=== PATIENT | female | born 1995 | race Caucasian/White ===

== ENCOUNTER 2016-08-13 07:25 | Inpatient (IN) | payer BC ==
--- NOTE | ~2016-08-13 | HP ---
Unit #: [id number] #: [id number] Patient: CESAR GUEVARA [id number] [address] [address] [id number] I MR#: [id number] NAME: CESAR GUEVARA ROOM: 47 Age: 21 Sex: F Admission Date: 08/13/2016 : 1995 Attending Physician: Miranda Mijares M.D. Primary Care Physician: Leandro Huang M.D. HISTORY AND PHYSICAL CHIEF COMPLAINT Abdominal pain. HISTORY OF PRESENT ILLNESS The patient is a 21-year-old female with past medical history of irritable bowel syndrome, who presented to [facility] for evaluation of the above. The patient states that she was in her usual state of health until around midnight when she developed abdominal pain. She states that the pain was in the upper abdomen. She described it as "sharp." She states that it is similar to when she had irritable bowel syndrome pain in the past. She took over the counter laxatives without relief. She denies any vomiting. She has not had a bowel movement since yesterday. She presented to the emergency department for further evaluation. In the emergency department, a gallbladder ultrasound was done and showed cholelithiasis with no evidence of gallbladder wall thickening. There was common bile duct dilation to 8 mm concerning for possible choledocholithiasis. She was transferred to [facility] for admission. PAST MEDICAL HISTORY 1. Irritable bowel syndrome: The patient had a colonoscopy with Dr. Denis at the age of 18. She is not sure where it was done. 2. Hyperlipidemia. PAST SURGICAL HISTORY Colonoscopy (no records). SOCIAL HISTORY The patient lives with her . There is no tobacco or alcohol use. She is not currently working. FAMILY HISTORY Notable for her dad having pancreatitis. ALLERGIES No known allergies. HOME MEDICATIONS None. REVIEW OF SYSTEMS Unit #: [id number] #: [id number] Patient: CESAR GUEVARA A complete review of systems is negative except as indicated in the HPI. DIAGNOSTIC STUDIES LABORATORY: Comprehensive metabolic panel is normal. Lipase is normal. Beta hCG is negative. Urinalysis is normal. Complete blood count normal. IMAGING: Right upper quadrant ultrasound shows cholelithiasis with no evidence of gallbladder wall thickening. There is dilation of the common bile duct to 8 mm concerning for possible choledocholithiasis. REVIEW OF SYSTEMS A complete review of systems is negative except as indicated in the HPI. The patient states that she has been going to [employer] and has lost about 20 pounds since February. PHYSICAL EXAMINATION VITAL SIGNS: Temperature 98, pulse 78, respirations 16, blood pressure 149/102 (most recently 130/70), oxygen saturation 100% on room air. GENERAL: The patient is a very pleasant female who is awake and alert in no acute distress. HEENT: The head is atraumatic. Mucous membranes are moist. NECK: Supple. Trachea is midline. CARDIOVASCULAR: Regular rate and rhythm. LUNGS: Clear to auscultation bilaterally with no increased work of breathing. ABDOMEN: Soft. She is mildly tender to palpation in right upper quadrant. Bowel sounds are present in all four quadrants. EXTREMITIES: Nontender with no pedal edema. NEUROLOGIC: The patient is awake and alert. She follows commands. PSYCHIATRIC: Mood and affect are normal. The patient is cooperative. SKIN: Skin of examined areas is warm and dry. ASSESSMENT The patient is a 21-year-old female with: 1. Abdominal pain: Right upper quadrant ultrasound showed findings concerning for possible choledocholithiasis. 2. Cholelithiasis with no gallbladder wall thickening. 3. History of irritable bowel syndrome. 4. Obesity with a body mass index of 36. 5. Hyperlipidemia. PLAN 1. Admit for observation to med/surg. 2. P.r.n. morphine. 3. P.r.n. Zofran. 4. P.r.n. Tylenol. 5. Normal saline at 125 mL/hr. 6. NPO. 7. Consult Dr. Yarbrough regarding abdominal pain and possible need for ERCP. 8. SCDs for DVT prophylaxis. 9. Repeat labs in the morning. 10. Additional workup and consultants based on above. Dictated by Unit #: [id number] #: [id number] Patient: TENA GUEVARAJEFF Mijares M.D. Odilon TD: 08/13/2016 17:29 JOB #: [id number] HISTORY AND PHYSICAL Page 1 of 1 X Miranda Mijares MD HISTORY AND PHYSICAL
--- NOTE | ~2016-08-13 | US67 ---
[facility] A Service of [facility] RADIOLOGY TEXT RESULTS PATIENT: CESAR GUEVARA LOCATION: SED : 95 UNIT #: [id number] AGE: [address]: Pari Soriano MD SEX: F ORDER DR: [id number] [address] [address] [id number] E MR#: [id number] Acc #: [id number] NAME: CESAR GUEVARA : 1995 SEX: F STUDY DATE/TIME: 08/13/2016 8:05 UNIT: SED ROOM: STUDY DESCRIPTION: Gallbladder Attending Physician: Pari Soriano M.D. Ordering Physician: Pari Soriano M.D. Primary Care Physician: Leandro Huang M.D. MEDICAL IMAGING REPORT This report is preliminary unless electronic signature is present. EXAM Gallbladder ultrasound 08/13/2016 HISTORY Right upper quadrant abdominal pain since 03:00 a.m. this morning. FINDINGS The liver is homogeneous in echotexture and demonstrates no cystic or solid mass lesions. The intrahepatic bile ducts are not dilated. The gallbladder contains multiple shadowing gallstones but there is no evidence of gallbladder wall thickening or pericholecystic fluid. The common duct is dilated to 8 mm. No obstructing mass or calculus is seen but the distal aspect of the common duct and the pancreas are obscured by bowel gas. If there is clinical concern for choledocholithiasis, consider correlation with MRCP. The right kidney is normal. IMPRESSION 1. Cholelithiasis. No evidence of gallbladder wall thickening or pericholecystic fluid. 2. There is no intrahepatic biliary ductal dilatation but the common duct is dilated to 8 mm. No obstructing mass or calculus is seen but note is made that the distal aspect of the common duct and the pancreas are obscured by bowel gas. If there is clinical concern for choledocholithiasis, consider correlation with MRCP. STAT * RESULT Dictated by... Beni Gracia M.D. [facility] A Service of [facility] RADIOLOGY TEXT RESULTS PATIENT: CESAR GUEVARA LOCATION: [facility] #: [id number] : [birth year] UNIT #: [id number] AGE: [address]: Pari Soriano MD SEX: F ORDER DR: THIS IS AN ELECTRONICALLY VERIFIED REPORT Beni Gracia M.D. at 08/13/2016 9:29 AM JESSE/jair TD: 08/13/2016 08:43 JOB #: [id number] MEDICAL IMAGING REPORT Page 1 of 1
--- NOTE | ~2016-08-13 | OR ---
Unit #: [id number] #: [id number] Patient: CESAR GUEVARA [id number] [address] [address] [id number] I MR#: [id number] NAME: CESAR GUEVARA ROOM: 479 Date of Procedure: 08/15/2016 Admission Date: 08/13/2016 Surgeon: Jack Cardenas M.D. : 1995 Attending Physician: Bekah Nunez M.D. Primary Care Physician: Leandro Huang M.D. OPERATIVE REPORT PREOPERATIVE DIAGNOSIS Cholecystitis. POSTOPERATIVE DIAGNOSIS Cholecystitis. PROCEDURE PERFORMED Laparoscopic cholecystectomy. BLACK OXIDE COATING EQUIPMENT TENDER None. ANESTHESIA General endotracheal anesthesia. ESTIMATED BLOOD LOSS Minimal. IV FLUIDS 800 crystalloid. COMPLICATIONS None. INDICATIONS FOR PROCEDURE The patient is a 21-year-old with cholecystitis. DESCRIPTION OF PROCEDURE The patient was taken to the operating theater and placed in a supine position. General anesthesia was induced. Her abdomen was prepped and draped. An Optiview trocar was placed in the right upper quadrant without difficulty. The abdomen was insufflated to 15 mmHg with CO2. Under direct vision, I placed a subxiphoid 10 mm, right lateral 5 mm, umbilical 5 mm. General inspection of the abdomen revealed acute cholecystitis. The gallbladder was retracted up over the liver. We dissected the neck of the gallbladder and identified the cystic duct. Its junction with the gallbladder was confirmed. It was thus skeletonized, doubly hemoclipped, and divided. The gallbladder was removed from the gallbladder bed with Bovie electrocautery and delivered via the subxiphoid port. Hemostasis was adequate. We removed the ports under direct vision with no evidence of abdominal hemorrhage. The wounds were closed with 4-0 Vicryl. The patient tolerated the procedure well and sent to the recovery room in good Unit #: [id number] #: [id number] Patient: CESAR GUEVARA condition. Dictated by... Jagjit Marx/abril TD: 08/15/2016 17:28 JOB #: [id number] OPERATIVE REPORT Page 1 of 1 X Jack Cardenas MD PROCEDURE OPERATIVE NOTE
--- NOTE | ~2016-08-13 | MR145 ---
[facility] A Service of [facility] RADIOLOGY TEXT RESULTS PATIENT: CESAR GUEVARA LOCATION: [place] [address]- : [birth year] UNIT #: [id number] AGE: [address]: Beakh Nunez MD SEX: F ORDER DR: [id number] [facility] [address] [facility]. [place], [place] [address] [id number] I MR#: [id number] Acc #: [id number] NAME: CESAR GUVEARA : 1995 SEX: F STUDY DATE/TIME: 08/13/2016 19:33 UNIT: [facility] ROOM: [facility] STUDY DESCRIPTION: MR MRCP WWo Contrast Attending Physician: Bekah Nunez M.D. Ordering Physician: Miranda Mijares M.D. Primary Care Physician: Leandro Huang M.D. MRI CENTER REPORT This report is preliminary unless electronic signature is present. EXAM MRI/MRCP INDICATIONS Right upper quadrant abdominal pain for 10 months. Acute right upper quadrant pain for 1 day. TECHNIQUE Multiplanar MRI of the abdomen with and without IV contrast (20 mL MultiHance IV contrast). Thin and thick slab MRCP sequences were obtained. COMPARISON Right upper quadrant ultrasound 08/13/2016. FINDINGS The liver is morphologically normal. There is no hepatic mass. The intrahepatic bile ducts are normal in caliber. No significant biliary variants are identified of the intrahepatic ducts. There are multiple gallstones layering dependently in gallbladder. The gallbladder is not distended. There is no pericholecystic inflammation. The common duct measures 0.8 cm at the port hepatis. There is gradual tapering of the duct to the level of the ampulla/pancreatic head. No choledocholithiasis. No abnormal enhancement or mass associated with the duct. The pancreas is normal. No pancreatic ductal enlargement. The spleen, adrenal glands, and kidneys are normal. No hydronephrosis. The bowel is not dilated. No abnormal bone marrow signal. [facility] A Service of [facility] RADIOLOGY TEXT RESULTS PATIENT: CESAR GUEVARA [facility] [id number] : [birth year] UNIT #: [id number] AGE: [address]: Bekah Nunez MD SEX: F ORDER DR: IMPRESSION 1. Cholelithiasis. 2. Mildly enlargement of the common bile duct measuring 0.8 cm at the arie hepatis, however, there is no choledocholithiasis or abnormal enhancement/mass associated with the common bile duct. 3. Normal appearance of the pancreas and pancreatic duct. Dictated by... Marcio Andrea M.D. THIS IS AN ELECTRONICALLY VERIFIED REPORT Marcio Andrea M.D. at 08/14/2016 10:55 AM FE/neetu TD: 08/14/2016 10:28 JOB #: [id number] MRI CENTER REPORT Page 1 of 1 COPY
--- NOTE | ~2016-08-13 | DS ---
Unit #: [id number] #: [id number] Patient: CESAR GUEVARA [id number] [address] [address] [id number] I MR#: [id number] NAME: CESAR GUEVARA ROOM: 47 Age: 21 Sex: F Admission Date: 08/13/2016 : 1995 Discharge Date: 08/16/2016 Attending Physician: Bekah Nunez M.D. Primary Care Physician: Leandro Huang M.D. DISCHARGE SUMMARY DISCHARGE DIAGNOSES 1. Acute biliary colic with cholelithiasis. 2. Irritable bowel syndrome. 3. Hyperlipidemia. CONSULTATIONS 1. Dr. Yarbrough. 2. Dr. Wilhelm. PROCEDURE The patient had laparoscopic cholecystectomy. DIAGNOSTIC STUDIES LAB DATA: Sodium 136, potassium 4.5, creatinine 0.7. Liver enzymes normal. WBC 10.3, hemoglobin 12.9, platelets 262. IMAGING: MRCP shows cholelithiasis, mildly enlargement of the common bile duct measuring 0.8 cm at the arie hepatis. No choledocholithiasis. No abnormal mass. Ultrasound of the gallbladder shows cholelithiasis. No evidence of gallbladder wall thickening. No intrahepatic biliary duct dilation but common bile duct is 80 mm. HOSPITALIZATION COURSE A 21 year old admitted because of abdominal pain. Acute biliary colic with abnormal MRCP. The patient was seen by GI and [facility]. According to them, the patient needs MRCP which she had and which was abnormal. The patient underwent a laparoscopic cholecystectomy. Patient being discharged home by [facility]. Follow with the family physician in one week's time. Follow with Dr. Cardenas in one week's time. The patient was started on diet as tolerated by [facility]. ALLERGIES None. DISCHARGE MEDICATION 1. Laxative of choice. 2. control pills p.o. daily as per family physician. 3. Lortab 7.5 mg one to two tablets p.o. q.6 p.r.n. pain. Discharge home. Follow with family physician in one week's time. Follow with [facility] in one week's time. Unit #: [id number] #: [id number] Patient: CESAR GUEVARA Dictated by... Jagjit Roth TD: 08/16/2016 12:55 JOB #: [id number] DISCHARGE SUMMARY Page 1 of 1 X Bekah Nunez MD X DISCHARGE SUMMARY
--- NOTE | ~2016-08-13 | CO ---
Unit #: [id number] #: [id number] Patient: CESAR GUEVARA [id number] [address] [place] [address] [place], [place] [address] [id number] I MR#: [id number] NAME: CESAR GUEVARA ROOM: 47 Age: 21 Sex: F Admission Date: 08/13/2016 : 1995 Attending Physician: Bekah Nunez M.D. Primary Care Physician: Leandro Huang M.D. Consultation Date: 08/14/2016 CONSULTATION REPORT BRIEF SUMMARY The patient is a 21-year-old white female, who has normal good health up until the day and a half ago when she developed severe upper abdominal pains with associated nausea without vomiting. She has had no fever, no chills and at present, her pains resolved. She was seen in the emergency room at [facility] and worked up including a CAT scan with evidence of gallstones and some dilatation of her ductal system. She has had no past history of jaundice, hepatitis, pancreatitis, or peptic ulcer disease, but has had some intermittent attacks of similar pains that resolved without significant intervention. She has been diagnosed with irritable bowel syndrome, which may have also been related to her gallbladder couple of years ago and had a colonoscopy by Dr. Denis at that time, which was negative. The patient is nonsmoker. She denies any fatty food intolerance. PAST MEDICAL HISTORY Serious illnesses, none except for some hyperlipidemia. PAST SURGICAL HISTORY The patient had wisdom teeth removed and a colonoscopy as noted above. MEDICATIONS None chronically. ALLERGIES None known. TRANSFUSION None in the past. FAMILY HISTORY Her father did have gallstones and had a cholecystectomy, also had a history of pancreatitis from drinking alcohol. SOCIAL HISTORY The patient is . Lives at home with family. Has normal good appetite. No recent weight change. She is nonsmoker and nondrinker. IMMUNIZATIONS Up to date. REVIEW OF SYSTEMS Unremarkable except for that noted in the present illness. Unit #: [id number] #: [id number] Patient: CESAR GUEVARA PHYSICAL EXAMINATION VITAL SIGNS: Temperature 98.6, pulse 78, respirations 16, blood pressure 130/90. GENERAL DESCRIPTION: The patient is well-developed, obese 21-year-old white female, in no acute distress. HEENT: Not remarkable. NECK: Supple. CHEST: There is equal bilateral expansion with bilateral equal breath sounds. LUNGS: Clear bilaterally. HEART: Regular rhythm without murmurs or gallops. There is no evidence of cardiomegaly clinically. ABDOMEN: Soft, nontender, benign without palpable mass or organomegaly. There is no gross abdominal distention. No guarding or rebound. Active bowel sounds present. No evidence of ascites or hernias. EXTREMITIES: Full range of motion without limitation. There is no evidence of peripheral edema. BACK: There is no CVA tenderness. NEUROLOGIC: Grossly intact. IMPRESSION The patient has biliary colic with documented gallstones. No evidence of any common duct stones with normal liver function test. PLAN Plan will be to go ahead with laparoscopic cholecystectomy. I have discussed the surgery including the risks, including that of common duct injury, biliary leak, and bleeding, and intra-abdominal organ injury, and the patient consents. Dictated by... Odell Wilhelm Jr., M.Mili. LILIYA/abril TD: 08/14/2016 19:56 JOB #: [id number] CONSULTATION REPORT Page 1 of 1 X Odell Wilhelm MD X CONSULTATION REPORT
--- NOTE | ~2016-08-13 | CO ---
Unit #: [id number] #: [id number] Patient: CESAR CARVER [id number] [address] [place], [place] [address] [id number] I MR#: [id number] NAME: CESAR CARVER ROOM: 47 Age: 21 Sex: F Admission Date: 08/13/2016 : 1995 Attending Physician: Bekah Nunez M.D. Primary Care Physician: Leandro Huang M.D. Consultation Date: 08/13/2016 CONSULTATION REPORT REASON FOR CONSULTATION Abdominal pain, bladder stones. HISTORY OF PRESENTING ILLNESS Ms. Carver is a 21-year-old female. She was doing fine until last night when she started with some pain over to morning. It became really severe. It was mostly on the right side going to the chest, hands and back. She presented to the emergency room with the same pain and has been treated with morphine and feels better. Currently, she has no pain. She has no ever, no chills. She did have some nausea but no vomiting. She has not taken a bowel movement. PAST HISTORY Significant for IBS - colonoscopy three years ago with Dr. Denis was negative. SOCIAL HISTORY Nonsmoker, nonalcoholic. FAMILY HISTORY Noncontributory. REVIEW OF SYSTEMS Complete ten point review of systems was done which was unremarkable other than as mentioned above. PHYSICAL EXAMINATION VITAL SIGN: Stable, afebrile. No acute distress. HEENT: Pupils equal and reactive. Sclerae anicteric. Oral mucosa moist. NECK: No JVD, no lymphadenopathy. CHEST: Clear to auscultation bilaterally. CARDIOVASCULAR SYSTEM: Regular rate and rhythm. No murmurs. ABDOMEN: Soft, nontender, nondistended. EXTREMITIES: Without clubbing, cyanosis or edema. NEUROLOGICAL: Intact. SKIN: Warm and dry. DIAGNOSTIC STUDIES LABORATORY: CBC and CMP are completely unremarkable. LFTs are normal. Amylase and lipase are normal. IMAGING: Ultrasound of the abdomen shows dilated common bile duct at 8 mm. Gallstones were seen. No stones were seen in the duct itself. Unit #: [id number] #: [id number] Patient: CESAR CARVER ASSESSMENT AND PLAN Patient with acute biliary colic, possible common bile duct stone may have passed. LFTs are normal. At this time, she is feeling somewhat better also. I will get an MRCP for further evaluation. If there is any clear evidence of stones or persistent symptoms or duct abnormality, ERCP will be considered for clearing the duct. She may also need a cholecystectomy which will be considered after reviewing the MRCP. Thank you Dr. Mijares for this interesting consult. We will follow along. Dictated by... Emilio Yarbrough M.D. SOFIE/serafin TD: 08/15/2016 07:16 JOB #: [id number] CONSULTATION REPORT Page 1 of 1 X Emilio Yarbrough MD X CONSULTATION REPORT
--- NOTE | ~2016-08-13 | DS ---
Unit #: [id number] #: [id number] Patient: CESAR CARVER [id number] [address] [address] [id number] I MR#: [id number] NAME: CESAR CARVER ROOM: [facility] Age: 21 Sex: F Admission Date: 08/13/2016 : 1995 Discharge Date: 08/16/2016 Attending Physician: Bekah Nunez M.D. Primary Care Physician: Leandro Huang M.D. DISCHARGE SUMMARY HISTORY OF PRESENT ILLNESS Ms. Carver is a 21-year-old female who was admitted to the Medical Service because of severe abdominal pain. Radiologic evaluation revealed cholelithiasis with a dilated common bile duct. She was seen by Gastroenterology who ordered a MRCP because her liver chemistries were normal. MRCP showed no evidence of any choledocholithiasis. She was taken to the operating room the following day where she underwent an uncomplicated laparoscopic cholecystectomy. Postoperatively, her labs were all normal. She is afebrile with stable vital signs. She is tolerating a diet and her wounds are healing without complication. She will be discharged home today in stable condition with instruction to undergo diet and activity as tolerated. She may shower but not submerge her wounds under water until seen in the office. She is to call [phone] for a followup appointment with Dr. Cardenas. She may use a laxative as needed and resume any home medications that she is on. Medication reconciliation sheet was completed. A prescription for hydrocodone was left for pain control. The patient understood these instructions and will be discharged home in stable condition. Dictated by... Chris Mccurdy M.D. GALINA/virgen TD: 08/17/2016 09:28 JOB #: [id number] DISCHARGE SUMMARY Page 1 of 1 X Chris Mccurdy MD X DISCHARGE SUMMARY
[~2016-08-13 07:25] MED LIST: FIORICET 50-321 EACH PO
[2016-08-13] MEDS ORDERED: NO MEDICATIONS (07:32)
[2016-08-13 08:10] LABS: URINE SOURCE CLEAN CATCH
[2016-08-13 08:14] LABS: URINE APPEARANCE CLEAR; URINE BILIRUBIN NEG (NEG); URINE BLOOD NEG (NEG); URINE COLOR YELLOW; URINE GLUCOSE NEG (NORM); URINE KETONE NEG (NEG); URINE LEUKOCYTE ESTERASE NEG (NEG); URINE NITRATE NEG (NEG); URINE PROTEIN NEG (NEG); URINE UROBILINOGEN 0.2 MG/DL (NORM)
[2016-08-13 08:18] LABS: BASOPHIL% 0.4 % (0-2.5); EOSINOPHIL# 0.1 X10e3 (0-0.7); EOSINOPHIL% 1.2 % (0.0-7.0); HEMOGLOBIN 13.5 gm/dL (12.0-16.0); LYMPHOCYTE# 2.6 X10e3 (1.0-3.5); LYMPHOCYTE% 31.6 % (17.0-45.0); MEAN CORPUSCULAR HEMOGLOBIN 30.5 PG (28-34); MEAN CORPUSCULAR HGB CONC 33.9 g/dL (30-36); MEAN PLATELET VOLUME 10.5 FL (6.5-11.5); MONOCYTE# 0.6 X10e3 (0-1.0); MONOCYTE% 7.8 % (3.0-12.0); NEUTROPHIL# 4.9 X10e3 (1.5-7.1); PLATELET COUNT 237 X10e3 (140-420); RED BLOOD COUNT 4.44 X10e (3.90-5.30); WHITE BLOOD COUNT 8.3 X10e3 (4.0-10.5)
[2016-08-13 08:20] LABS: DIFF IND NO; MICRO INDICATED? NO
[2016-08-13 08:35] LABS: ALBUMIN SERUM 4.1 g/dL (3.5-5.0); ALKALINE PHOSPHATASE 91 U/L (32-92); ALT (SGPT) 13 U/L (10-40); AST (SGOT) 16 U/L (10-42); BILIRUBIN,TOTAL 0.4 mg/dL (0.2-2.0); BLOOD UREA NITROGEN 12 mg/dL (9-23); CARBON DIOXIDE 22 mmol/L (22-31); CHLORIDE 107 mmol/L (100-111); CREATININE SERUM 0.8 mg/dL (0.6-1.4); GLOM FILT RATE Estimated 105.5 mL/min (>60); GLUCOSE FASTING 100 mg/dL (70-110); LIPASE 41 U/L (22-51); POTASSIUM 3.8 mmol/L (3.5-5.1); PROTEIN TOTAL SERUM 7.3 g/dL (6.0-8.3); SODIUM 135 mmol/L (135-145)
[2016-08-13 08:36] LABS: BILIRUBIN, DIRECT <0.1 mg/dL (0.0-0.2); BILIRUBIN,INDIRECT 0.3 mg/dL (0.0-0.9)
[2016-08-13] MEDS ORDERED: LOC PO (17:52)
[2016-08-13] MEDS ORDERED: BIRTH CONTROL PILL PO (17:53)
[2016-08-14 06:14] LABS: HEMATOCRIT 37.9 % (35.0-45.0); HEMOGLOBIN 12.6 gm/dL (12.0-16.0); MEAN CELL VOLUME 90.8 FL (83-96); MEAN CORPUSCULAR HEMOGLOBIN 30.3 PG (28-34); MEAN CORPUSCULAR HGB CONC 33.4 g/dL (30-36); MEAN PLATELET VOLUME 10.8 FL (6.5-11.5); RED BLOOD COUNT 4.18 X10e (3.90-5.30); RED CELL DISTRIBUTION WIDTH 13.1 % (11.0-15.5); WHITE BLOOD COUNT 7.6 X10e3 (4.0-10.5)
[2016-08-14 06:45] LABS: ALBUMIN SERUM 3.3 g/dL (3.5-5.0); BILIRUBIN,TOTAL 0.3 mg/dL (0.2-2.0); BUN/CREATININE RATIO 11.25; CALCIUM SERUM 8.4 mg/dL (8.4-10.2); CREATININE SERUM 0.8 mg/dL (0.6-1.4); GLOM FILT RATE Estimated 105.5 mL/min (>60); POTASSIUM 3.7 mmol/L (3.5-5.1); PROTEIN TOTAL SERUM 6.1 g/dL (6.0-8.3)
[2016-08-15 04:18] LABS: HEMATOCRIT 37.9 % (35.0-45.0); HEMOGLOBIN 12.7 gm/dL (12.0-16.0); MEAN CELL VOLUME 89.9 FL (83-96); MEAN CORPUSCULAR HEMOGLOBIN 30.2 PG (28-34); MEAN CORPUSCULAR HGB CONC 33.6 g/dL (30-36); MEAN PLATELET VOLUME 10.3 FL (6.5-11.5); RED BLOOD COUNT 4.21 X10e (3.90-5.30); RED CELL DISTRIBUTION WIDTH 12.9 % (11.0-15.5); WHITE BLOOD COUNT 7.9 X10e3 (4.0-10.5)
[2016-08-15 04:41] LABS: ALBUMIN SERUM 3.7 g/dL (3.5-5.0); ALKALINE PHOSPHATASE 72 U/L (32-92); ALT (SGPT) 24 U/L (10-40); AST (SGOT) 18 U/L (10-42); BILIRUBIN,TOTAL <0.1 mg/dL (0.2-2.0); BLOOD UREA NITROGEN 11 mg/dL (9-23); BUN/CREATININE RATIO 18.33; CALCIUM SERUM 8.8 mg/dL (8.4-10.2); CARBON DIOXIDE 23 mmol/L (22-31); CHLORIDE 108 mmol/L (100-111); CREATININE SERUM 0.6 mg/dL (0.6-1.4); GLOM FILT RATE Estimated 130.3 mL/min (>60); GLUCOSE FASTING 81 mg/dL (70-110); POTASSIUM 3.8 mmol/L (3.5-5.1); PROTEIN TOTAL SERUM 6.9 g/dL (6.0-8.3); SODIUM 135 mmol/L (135-145)
[2016-08-16 03:21] LABS: HEMATOCRIT 37.8 % (35.0-45.0); HEMOGLOBIN 12.9 gm/dL (12.0-16.0); MEAN CELL VOLUME 88.6 FL (83-96); MEAN CORPUSCULAR HEMOGLOBIN 30.3 PG (28-34); MEAN CORPUSCULAR HGB CONC 34.2 g/dL (30-36); MEAN PLATELET VOLUME 10.2 FL (6.5-11.5); RED BLOOD COUNT 4.26 X10e (3.90-5.30); RED CELL DISTRIBUTION WIDTH 12.8 % (11.0-15.5); WHITE BLOOD COUNT 10.3 X10e3 (4.0-10.5)
[2016-08-16 03:53] LABS: ALBUMIN SERUM 3.8 g/dL (3.5-5.0); BILIRUBIN,TOTAL 0.3 mg/dL (0.2-2.0); BUN/CREATININE RATIO 14.28; CALCIUM SERUM 9.2 mg/dL (8.4-10.2); CREATININE SERUM 0.7 mg/dL (0.6-1.4); GLOM FILT RATE Estimated 123.9 mL/min (>60); POTASSIUM 4.5 mmol/L (3.5-5.1); PROTEIN TOTAL SERUM 7.3 g/dL (6.0-8.3)
[2016-08-16] MEDS ORDERED: ACETAMINOPHEN650 M4 PO (07:43)
[2016-08-16] MEDS ORDERED: NORCO 7.5-3251 EACH PO (07:46)
== END 2016-08-16 08:35 | disposition home or self-care (01) | DRG 419 ==
LOC: SED 07:25 → SEDOF 10:07 → SED 10:55 → C4C 10:55 → SEDOF 14:12 → C4C 08-14 07:44
PROVIDERS: Emergency Medicine; Internal Medicine; Surgery
PROC: 0FT44ZZ Resection of Gallbladder, Percutaneous Endoscopic Approach (ICD-10-PCS; principal; 2016-08-15 12:30)
DX: K80.10 Calculus of gallbladder with chronic cholecystitis without obstruction (principal); E78.5 Hyperlipidemia, unspecified; K58.9 Irritable bowel syndrome, unspecified; E66.9 Obesity, unspecified; Z68.36 Body mass index [BMI] 36.0-36.9, adult
CPT/HCPCS: 36415; 74183; 76705; 80048; 80053; 80076; 81003; 82150; 83690; 84703; 85025; 85027; 88304; 96361; 96374; 96376; 99285; A9577; J0330; J0690; J1100; J1170; J1644; J1885; J2250; J2270; J2405; J2710; J3010